=== PATIENT | female | born 1995 | race African-American/Black ===

== ENCOUNTER 2020-12-16 06:38 | Inpatient (IN) ==
[2020-12-16] MEDS ORDERED: D5 1/2 NS 1,000 ML 1,000 ML IV ONE (06:42)
[2020-12-16] MEDS ORDERED: PITOCIN ONE (06:42)
[2020-12-16] MEDS ORDERED: D5 LR + PITOCIN 10 UNITS/L 10 UNITS/1,000 ML BAG IV ONE (06:43)
[2020-12-16] MEDS ORDERED: D5 1/2 NS 1,000 mL + PITOCIN 20 UNITS/L IV 20 UNITS/1,000 ML BAG IV ONE (06:43)
[2020-12-16] MEDS ORDERED: BETADINE SOLN ONE (06:43)
--- NOTE | 2020-12-16 07:20 | DR.OB ---
OB Quick Note - Assessment/Plan Assessment/Plan: L&D 12/16/20 at 7:15am S-No complaint. O-Afebrile,VSS [id number] with good LTV, +accel, no decel. CTX=none CVX=2-3cm/50%/-1/VTX AROM with clear fluid. IUPC and FSE placed. A-IUP at 38 4/7 weeks for induction PIH P-Begin pitocin induction Check preeclamptic labs Anticipate
[2020-12-16] MEDS ORDERED: NUBAIN INJ 200 MG VIAL MULTIDOSE IVP PRN (07:26)
[2020-12-16] MEDS ORDERED: PITOCIN IVP ONE (07:26)
[2020-12-16] MEDS ORDERED: D5 LR + PITOCIN 10 UNITS/L 10 UNITS/1,000 ML BAG IV PRN (07:26)
[2020-12-16] MEDS ORDERED: PHENERGAN INJ 25 MG IM PRN ×2 (07:26→13:20)
[2020-12-16] MEDS ORDERED: REGLAN INJ 10 MG VIAL IVP PRN (07:26)
[2020-12-16] MEDS ORDERED: D5 1/2 NS 1,000 ML 1,000 ML IV SCH (07:26)
[2020-12-16] MEDS ORDERED: MORPHINE SULFATE INJ 2 MG INJ IVP PRN (07:26)
[2020-12-16] MEDS ORDERED: STADOL INJ IVP PRN (07:32)
[2020-12-16 07:59] LABS: URIC ACID 3.4 mg/dL (2.6-6.0)
[2020-12-16] MEDS ORDERED: LR 1,000 ML IV 1,000 ML IV ONE (09:38)
[2020-12-16] MEDS ORDERED: FENTANYL VIAL INJ 100 mcg ONE ×2 (10:15→10:16)
[2020-12-16] MEDS ORDERED: NAROPIN EPIDURAL 0.2% 100 ML ONE (10:15)
[2020-12-16] MEDS ORDERED: REGLAN INJ 10 MG VIAL ONE (11:45)
--- NOTE | 2020-12-16 12:10 | DR.OB ---
OB Quick Note - Assessment/Plan Assessment/Plan: L&D 12/16/20 at 12:05pm Pitocin=12mu/min. S-No complaint. s/p epidural. O-Afebrile,VSS INA=[id number] with good LTV, +accel, no decel. CTX=q 1 1/2 to 2 min., about 45-55mmHg CVX=5-6cm/80%/0 A-IUP at 38 4/7 weeks for induction PIH P-Cont. pitocin induction Anticipate
--- NOTE | 2020-12-16 13:26 | DR.OB ---
OB Quick Note - Assessment/Plan Assessment/Plan: Delivery Note ALBER[facility]TER 12/16/20 at 1:09pm Patient complete and pushing. Head delivered over intact perineum. No nuchal cord. Nose and mouth bulb suctioned. Body delivered over intact perineum. Cord clamped x 2 and cut. handed to attendant. Cord sent for gases. Placenta delivered spontaneously / intact / 3 vessel cord. No CVX / vaginal / perineal tears. Viable male , VTX/OA, wt=6'11" and 9/9, delivered vaginally to NBN. Mother stable to RR. [id number].
[2020-12-16] MEDS ORDERED: MILK OF MAGNESIA PO PRN (14:13)
[2020-12-16] MEDS ORDERED: AMBIEN PO PRN (14:13)
[2020-12-16] MEDS ORDERED: DERMOPLAST PAIN RELIEF SPRAY TOP PRN (14:13)
[2020-12-16] MEDS ORDERED: ADACEL or BOOSTRIX TDaP VACCINE IM ONE (14:13)
[2020-12-16] MEDS: MOTRIN TAB 800 MG PO PRN (19:55)
[2020-12-16] MEDS: D5 1/2 NS 1,000 ML 1,000 ML with PITOCIN 20 UNITS IV SCH ×4 (20:05→21:15)
[2020-12-17] MEDS: MOTRIN TAB 800 MG PO PRN (05:04)
[2020-12-17] MEDS: D5 1/2 NS 1,000 ML 1,000 ML with PITOCIN 20 UNITS IV SCH ×4 (05:05→14:13)
[2020-12-17 05:30] LABS: HEMATOCRIT 31.6 % (36.0-47.0); HEMOGLOBIN 10.6 g/dL (12.0-16.0)
[2020-12-17] MEDS ORDERED: DEPO-PROVERA CONTRACEPTIVE INJ IM ONE (06:26)
[2020-12-17] MEDS ORDERED: PRENATAL PLUS PO SCH (09:00)
[2020-12-17] MEDS ORDERED: DEPO-PROVERA CONTRACEPTIVE INJ IM NR (13:00)
[2020-12-17 15:26] VITALS: BP 120/72
== END 2020-12-17 16:20 | disposition home or self-care (01) | DRG 807 ==
LOC: LD 06:38 → MED/SURG 16:49
PROVIDERS: ADMIT Specialist; ATTEND Specialist
DX: O13.4 Gestational [pregnancy-induced] hypertension without significant proteinuria, complicating childbirth; Z37.0 Single live birth; Z20.822 Contact with and (suspected) exposure to COVID-19; Z01.818 Encounter for other preprocedural examination; Z3A.38 38 weeks gestation of pregnancy; Z01.812 Encounter for preprocedural laboratory examination; Z23 Encounter for immunization